=== PATIENT | male | born 1960 | race Caucasian/White ===

== ENCOUNTER 2018-03-12 09:38 | Emergency (ER) | payer OTHER, BC ==
[~2018-03-12] VITALS: Ht 182.9 cm; Wt 83.9 kg
[~2018-03-12 09:38] MED LIST: BENZTROPINE MES1 MG PO; CEFTIN500 MG PO; CLONAZEPAM 1 MG1 M1 PO; CLONAZEPAM PO; DESYREL100 MG PO; FUROSEMIDE 40 M40 M1 PO; GEODON60 MG PO; K-DUR 20 MEQ T20 MEQ PO; KEFLEX500 MG PO; LISINOPRIL5 MG PO; TOPAMAX 100 MG100 MG PO; ZAROXOLYN10 MG PO
[2018-03-12 12:49] VITALS: BP 114/72
== END 2018-03-12 12:50 | disposition home or self-care (01) ==
LOC: ER 09:38
DX: S62.512A Displaced fracture of proximal phalanx of left thumb, initial encounter for closed fracture (principal); S01.511A Laceration without foreign body of lip, initial encounter; F31.9 Bipolar disorder, unspecified; Y04.2XXA Assault by strike against or bumped into by another person, initial encounter; Y92.89 Other specified places as the place of occurrence of the external cause; Y93.89 Activity, other specified; Y99.8 Other external cause status